=== PATIENT | male | born 1985 | race Caucasian/White ===

== ENCOUNTER 2023-07-06 08:00 | Day surgery (SDC) | payer OTHER, SELFPAY ==
[2023-06-26 10:49] VITALS: BMI 28.9
[2023-07-06 09:00] VITALS: BP 127/91; PULSE 92; RESP 20; TEMP 36.9; O2SAT 98
--- NOTE | 2023-07-06 09:29 | WPDANESEPPF ---
Anes - Initial Pre Proc Eval Procedure: Operation Date: 07/06/23 10:30 Proposed Procedures p Colonoscopy - Charles Maher MD Date/Time: 07/06/23 09:29 Surgeon: Charles Maher MD Pre Op Diagnosis: Anal Fissure, Hemorrhage of Anus and Rectum Patient Data Age: 38 Gender: M Height: 1.8 m Weight: 96.1 kg Allergies Allergy/AdvReac Type Severity Reaction Status Date / Time No Known Allergies Allergy Verified 07/06/23 09:19 Home Medications Medication Instructions Recorded Confirmed Type pharmacy compounding accessory See Rx Instructions miscellaneous 06/14/23 07/06/23 Rx .COMPLEX #1 ea bupropion HCl 300 mg 24 hr tablet, 300 mg PO DAILY 06/26/23 07/06/23 History extended release Patient hx anesthesia problems: none Family hx anesthesia problems: none Results Review: All pre-operative results and documents have been reviewed as part of the pre-operative evaluation. [facility], [facility] Past Medical History Medical History Anal fissure Rectal bleeding Rectal pain Social History Social History Smoking status: Never smoker Alcohol intake: current Drinks per week: 1 Alcohol use details: 1-2 PER MONTH Substance use: never Substance use type: does not use Living arrangements: with family Spiritual care concerns: No Anes - Eval Final PreProcedure Day of Procedure 07/06/23 09:29 Patient weight: overweight Heart: regular rate and rhythm Lungs: clear to auscultation Airway: Mallampati scale class II Neurological: alert and oriented Last oral intake: >/= 8 hours ASA classification: II Emergent: no Anesthetic plan: proceed Anesthesia type and monitoring: general GIVS and standard monitoring Results Review: All pre-operative results and documents have been reviewed as part of the pre-operative evaluation. Informed Consent: The patient's anesthetic plan and its attendant risks and benefits were discussed with the patient/family/POA. Questions were solicited and answers provided to the satisfaction of the patient/family/POA.
[2023-07-06] MEDS: LACTATED RINGERS 1,000 ML 150 ML IV CONT (09:30)
--- NOTE | 2023-07-06 10:16 | WPDHPUPDATE1 ---
History and Physical Update Update Date/Time: 07/06/23 10:16 History and Physical has been reviewed, including an updated exam of the patient. There are NO changes in the patient's condition. Risks, benefits, and alternatives have been discussed and questions answered. Patient agrees to proceed with procedure.
[2023-07-06 10:35] VITALS: BP 116/95; PULSE 75; RESP 18; O2SAT 98
[2023-07-06 10:45] VITALS: BP 108/84; PULSE 67; RESP 20; O2SAT 97
--- NOTE | 2023-07-06 10:46 | WPDANESPN ---
Anes - Prog Note Post-Op Date/Time: 07/06/23 10:46 Cardiovascular status: normal Respiratory status: normal Airway patency: baseline Mental status: baseline Post-Op hydration status: normal Vital Signs: Last Vital Signs Temp 36.9 C 07/06/23 09:00 Pulse 75 07/06/23 10:35 Resp 18 07/06/23 10:35 BP 116/95 H 07/06/23 10:35 Pulse Ox 98 07/06/23 10:35 O2 Del Method Room Air 07/06/23 10:35 Pain Score (VAS): 0 I/O: Intake & Output 07/05/23 07/06/23 07/06/23 23:59 07:59 15:59 Intake Total 700 Balance 700 Patient Feedback: Patient satisfied with anesthetic care.
[2023-07-06 10:55] VITALS: BP 111/88; PULSE 61; RESP 18; O2SAT 97
== END 2023-07-06 11:06 | disposition home or self-care (01) ==
PROVIDERS: PCP Internal Medicine; Visit Provider Internal Medicine Gastroenterology
PROC: 0DJD8ZZ Inspection of Lower Intestinal Tract, Via Natural or Artificial Opening Endoscopic (ICD-10-PCS; CPT 45378; principal; 2023-07-06 10:30)
DX: K92.1 Melena (principal)
CPT/HCPCS: 45378